=== PATIENT | female | born 1995 | race Caucasian/White ===

== ENCOUNTER 2020-07-20 10:34 | Emergency (ER) | payer OTHER ==
[~2020-07-20 10:34] MED LIST: COLACE100 MG PO; IBUPROFEN600 MG PO; OXYCODONE-ACET1 EAC1 PO
[2020-07-20 11:37] LABS: BASOPHIL 0.7 % (0-2); EOSINOPHIL 1.2 % (0-5); HCT 40.7 % (37.0-47.0); LYMPHOCYTE 23.5 % (15-48); MCHC 31.9 g/dL (32.0-36.0); MCV 78.1 fL (78.0-100.0); MONOCYTE 6.7 % (0-12); MPV 11.8 fL (6.0-9.5); NEUTROPHIL 66.8 % (41-80); NRBC 0; RBC 5.21 M/uL (4.20-5.40); RDW 13.6 % (11.5-14.0); RETICULOCYTE COUNT 1.1 % (1.0-2.0); WBC 7.6 K/uL (4.0-10.5)
[2020-07-20 11:46] LABS: INR 1.03 (0.9-1.2); PROTHROMBIN TIME 12.8 SECONDS (11.4-13.6); PTT 32.9 SECONDS (22.2-34.7)
[2020-07-20 11:47] LABS: PLT 38 K/uL (150-400)
[2020-07-20 11:53] LABS: ALBUMIN 3.4 g/dL (3.4-5.0); BILIRUBIN - TOTAL 0.3 mg/dL (0.2-1.0); BUN/CREAT RATIO (CALC) 15.2 RATIO; CREATININE 0.66 mg/dL (0.51-0.95); GLOBULIN (CALCULATION) 3.8 g/dL; POTASSIUM 3.5 mmol/L (3.5-5.1); TOTAL PROTEIN 7.2 g/dL (6.4-8.2)
[2020-07-20 11:58] LABS: IRON % SATURATION 8.4 %SAT (20-50)
== END 2020-07-20 13:05 | disposition home or self-care (01) ==
LOC: FER 10:34
PROVIDERS: Emergency Medicine
DX: D69.3 Immune thrombocytopenic purpura (principal); E61.1 Iron deficiency
CPT/HCPCS: 36415; 80053; 83540; 83550; 85025; 85610; 85730; 99283

== ENCOUNTER 2020-07-24 01:01 | Emergency (ER) | payer OTHER ==
[2020-07-24] MEDS ORDERED: VIBRAMYCIN100 MG PO (01:16)
[2020-07-24] MEDS ORDERED: NAPROXEN500 MG PO (01:16)
[2020-07-24] MEDS ORDERED: NORCO 5-325 TA1 EACH PO (01:16)
[2020-07-24 01:25] LABS: BASOPHIL 0.3 % (0-2); EOSINOPHIL 1.4 % (0-5); HCT 38.7 % (37.0-47.0); HGB 12.5 g/dl (12.5-16.0); LYMPHOCYTE 29.7 % (15-48); MCH 25.2 pg (25.0-31.0); MCHC 32.3 g/dL (32.0-36.0); MCV 77.9 fL (78.0-100.0); MONOCYTE 5.8 % (0-12); MPV 10.7 fL (6.0-9.5); NEUTROPHIL 62.2 % (41-80); NRBC 0; PLT 140 K/uL (150-400); RBC 4.97 M/uL (4.20-5.40); RDW 13.5 % (11.5-14.0); WBC 11.7 K/uL (4.0-10.5)
[2020-07-24 01:48] LABS: IRON % SATURATION 9.1 %SAT (20-50)
[2020-07-24 01:49] LABS: ALBUMIN 3.4 g/dL (3.4-5.0); BILIRUBIN - TOTAL 0.2 mg/dL (0.2-1.0); BUN/CREAT RATIO (CALC) 21.9 RATIO; CREATININE 0.64 mg/dL (0.51-0.95); GLOBULIN (CALCULATION) 3.9 g/dL; POTASSIUM 3.4 mmol/L (3.5-5.1); TOTAL PROTEIN 7.3 g/dL (6.4-8.2)
== END 2020-07-24 02:38 | disposition home or self-care (01) ==
LOC: FER 01:01
PROVIDERS: Emergency Medicine
DX: R42 Dizziness and giddiness (principal); R20.2 Paresthesia of skin; Z86.2 Personal history of diseases of the blood and blood-forming organs and certain disorders involving the immune mechanism
CPT/HCPCS: 36415; 80053; 83540; 83550; 85025; 99284